=== PATIENT | male | born 1985 | race Caucasian/White ===

== ENCOUNTER 2021-01-03 17:03 | Emergency (ER) | payer OTHER ==
[2021-01-03] MEDS ORDERED: CEPHALEXIN500 MG PO (17:49)
== END 2021-01-03 18:21 | disposition home or self-care (01) ==
LOC: FER 17:03
DX: T63.301A Toxic effect of unspecified spider venom, accidental (unintentional), initial encounter (principal); I10 Essential (primary) hypertension
CPT/HCPCS: 99282

== ENCOUNTER 2021-11-14 12:49 | Emergency (ER) | payer OTHER ==
[~2021-11-14 12:49] MED LIST: CEPHALEXIN500 MG PO
== END 2021-11-14 15:41 | disposition home or self-care (01) ==
LOC: FER 12:49
DX: S93.402A Sprain of unspecified ligament of left ankle, initial encounter (principal); X58.XXXA Exposure to other specified factors, initial encounter; Y93.39 Activity, other involving climbing, rappelling and jumping off; Y99.8 Other external cause status
CPT/HCPCS: 73610